=== PATIENT | male | born 1990 | race African-American/Black ===

== ENCOUNTER 2020-08-18 11:32 | Emergency (ER) | payer OTHER ==
[~2020-08-18] VITALS: Ht 185.4 cm; Wt 87.9 kg
[2020-08-18] MEDS ORDERED: Tylenol PM (11:48)
[2020-08-18] MEDS ORDERED: IBUP-1114 PO (11:48)
--- NOTE | 2020-08-18 12:15 | REP ---
INDICATION: severe headache. COMPARISON: None. TECHNIQUE: Helical scanning is acquired. 5 mm axial images were reformatted. Coronal MPR images were generated. FINDINGS: Bone window settings demonstrate an intact bony calvarium. There is no evidence of skull fracture or incidental bony calvarial lesion. The visualized paranasal sinuses appear clear. No intraorbital abnormality is seen. On soft tissue window setting images; the lateral, third, and fourth ventricles are normal in size and position. Knight-white differentiation pattern is normal above and below the tentorium. There are is no evidence of intracranial hemorrhage. No mass, edema, infarction, or midline shift is seen. No extra-axial fluid collection is appreciated. IMPRESSION: Negative noncontrast head CT. <Electronically signed by Daniel Hammer > 08/18/20 [id number]
[2020-08-18 12:51] VITALS: BP 126/87
== END 2020-08-18 12:55 | disposition home or self-care (01) ==
LOC: M ED 11:32
DX: R51.9 Headache, unspecified (principal); Z77.098 Contact with and (suspected) exposure to other hazardous, chiefly nonmedicinal, chemicals

== ENCOUNTER → 2022-12-26 | Outpatient (CLI) | payer OTHER ==
[~2022-12-26] MED LIST: IBUP-1114 PO; Tylenol PM
== END ==
LOC: M PLAIMG 06:33
PROVIDERS: ATTEND Physician Assistant
DX: M51.16 Intervertebral disc disorders with radiculopathy, lumbar region (principal); M51.34 Other intervertebral disc degeneration, thoracic region